=== PATIENT | female | born 1990 | race Caucasian/White ===

== ENCOUNTER 2018-07-12 05:10 | Inpatient (IN) | payer BC, SELFPAY ==
[2018-07-12] VITALS (22 sets, daily range): BP systolic 115–146; BP diastolic 60–86; PULSE 80–96; RESP 14–18; TEMP 36–37.1; O2SAT 95–100; BMI 33.8
[2018-07-12] MEDS: Lactated Ringers 1,000 ML 999 ML IV (05:25)
[2018-07-12 05:48] LABS: Absolute Lymphocyte Count 1.37 X10^3/ul (0.83-4.51); Basophil# 0.02 X10^3/uL; Basophil% 0.2 % (0-1); Eosinophil# 0.04 X10^3/uL; Eosinophils% 0.4 % (0-5); Hematocrit 40.8 % (37-47); Hemoglobin 14.2 g/dl (12.0-15.0); Lymphocyte # 1.37 X10^3/ul (4.0); Lymphocyte % 13.8 % (19-41); Mean Corp Hgb Conc 34.8 g/gl (32-36); Mean Corpuscular Hgb 32.9 pg (27.0-32.0); Mean Corpuscular Volume 94.4 fL (81-99); Mean Platelet Vol. 11.6 fl (6.2-12.0); Monocyte# 0.44 X10^3/uL; Monocyte% 4.4 % (0-10); Neutrophil # 8.01 X10^3/uL (2.7-7.7); Neutrophil % 80.8 % (47-70); Platelet Count 167 K/mm3 (150-450); RBC Distribution Width CV 12.9 % (11.6-14.6); RBC Distribution Width SD 43.9 fl (35.1-43.9); Red Blood Count 4.32 M/mm3 (4.2-5.4); White Blood Count 9.9 K/mm3 (4.4-11.0)
[2018-07-12 05:49] LABS: POSITIVE COUNT NO; POSITIVE DIFFERENTIAL NO; POSITIVE MORPHOLOGY NO
[2018-07-12] MEDS: Lactated Ringers 1,000 ML 150 ML IV (06:06)
[2018-07-12] MEDS: Sodium Citrate/Citric Acid 30 ML UDC PO (06:36)
[2018-07-12] MEDS: Cefazolin 2 GM in 0.9% Normal Saline 100 ML IV (07:06)
[2018-07-12] MEDS: Oxytocin 30 units/NS 500 ml 30 UNITS/500 ML IV.SOLN 167 UNITS IV (07:20)
[2018-07-12] MEDS: Lactated Ringers 1,000 ML 100 ML IV ×2 (08:10→18:28)
[2018-07-12] MEDS: Ketorolac 30 MG/ML Syringe IV ×2 (12:55→19:06)
[2018-07-12] MEDS: 0.9% Saline Lock 10 ML Syringe IV ×2 (12:55→19:07)
[2018-07-12] MEDS: Senna/Docusate Sodium 1 Tablet PO (15:28)
--- NOTE | 2018-07-12 20:57 | OP.PCM_ITS ---
Delivery Classification: Scheduled Final KENA: 07/15/18 Gestational age: 39 Weeks and 4 Days Indications for : Repeat Elective Description of Procedure: The patient was taken to the operating room. She was prepped and draped in the dorsal supine position with a leftward tilt. A Pfannenstiel skin incision was made approximately 2 cm above the symphysis pubis and carried through to underlying layer fascia with the scalpel. The fascia was incised incised in the midline and extended laterally with the Molina scissors. The fascia was dissected off the rectus muscles with blunt and sharp dissection. The rectus muscles were in the midline and the peritoneum was entered bluntly. The peritoneal incision was stretched and the bladder blade was placed. The uterine incision was made in a low transverse fashion with the scalpel and extended superiorly and inferiorly with blunt dissection. The amniotic membranes were ruptured bluntly and clear amniotic fluid returned. The 's head was brought to the incision in the flexed position and delivered without difficulty. The remainder of the infant was delivered with gentle traction and fundal pressure in the standard fashion. The mouth and nares were bulb suctioned. The cord was clamped and cut as the infant was stimulated. Cord clamping was delayed. The was handed off to the waiting nursing staff. The placenta was delivered with fundal massage and gentle traction in the standard fashion. The uterus was exteriorized and cleared of all clots and debris. The cervix was dilated with a ring forcep. The uterine incision was closed with #1 Vicryl in a running locked fashion. A second layer of the same suture was used in an imbricating fashion. The incision was examined and was found to be hemostatic. The uterus was placed back into the peritoneal cavity and hemostasis was again confirmed. The rectus muscles were examined and any bleeding was Bovie cauterized. The parietal peritoneum and rectus muscles were closed en bloc with an 0 Vicryl running suture. The surgical teams outer gloves were then changed. The rectus fascia was examined and any bleeding was Bovie cauterized and the rectus fascia was closed with #1 PDS suture in a running standard fashion. The subcutaneous tissue was examining and any bleeding was Bovie cauterized. The subcutaneous tissue was reapproximated with 3-0 Vicryl suture. The skin was closed in a subcuticular fashion by the NETWORK SECURITY ANALYST with me present in the labor and delivery suite. I performed the remainder of the procedure with assistance. All sponge, lap, and needle counts were correct. The patient was taken to her room for recovery in a stable condition. Amniotic Membrane Rupture Type: Artificial Amniotic Fluid Description: Clear Placenta Disposition: [facility] Drain: Doran to straight drain Cord Entanglement: None Cord Vessel Description: 3 Vessels Esitmated Blood Loss (ml): 800 Gender: Male (1 minute): 9 (5 minute): 9 Delayed cord clamping: Yes Pre-op Antibiotic Given: Ancef 2 grams IV x1 Complications: None - Admit VTE Documentation VTE Present on Admission: No VTE Mechan Device Prophylaxis: SCD's VTE Pharm Prophylaxis ordered?: Yes
[2018-07-13] VITALS (7 sets, daily range): BP systolic 116–131; BP diastolic 69–81; PULSE 71–89; RESP 14–16; TEMP 36.3–37.1; O2SAT 98–99
[2018-07-13] MEDS: Ketorolac 30 MG/ML Syringe IV ×4 (00:35→18:27)
[2018-07-13] MEDS: Senna/Docusate Sodium 1 Tablet PO ×2 (00:35→10:08)
[2018-07-13 05:32] LABS: Hematocrit 34.6 % (37-47); Hemoglobin 11.8 g/dl (12.0-15.0); Mean Corp Hgb Conc 34.1 g/gl (32-36); Mean Corpuscular Volume 96.6 fL (81-99); Mean Platelet Vol. 10.9 fl (6.2-12.0); Platelet Count 119 K/mm3 (150-450); RBC Distribution Width CV 13.1 % (11.6-14.6); RBC Distribution Width SD 43.8 fl (35.1-43.9); Red Blood Count 3.58 M/mm3 (4.2-5.4); White Blood Count 11.2 K/mm3 (4.4-11.0)
[2018-07-13 05:33] LABS: Scan Indicated on CBC? Y/N NO
[2018-07-13] MEDS: Enoxaparin 40 MG/0.4 ML Syringe SC (05:55)
[2018-07-13] MEDS: 0.9% Saline Lock 10 ML Syringe IV ×3 (05:55→18:27)
--- NOTE | 2018-07-13 10:10 | PCM.PN.OB ---
Subjective: pain well controlled, average lochia, no N/V. Kallie. regular diet - Physical Exam General: Alert, Cooperative, No apparent distress Abdomen: Soft, Distended - mildly, softly, Tender - appropriately Extremities: Edema - 1+ Skin: Incision - bandage clean,d ry and intact Vital Signs Temp Pulse Resp BP Pulse Ox 98.1 F 75 16 123/75 H 98 07/13/18 03:50 07/13/18 06:20 07/13/18 06:20 07/13/18 03:50 07/13/18 06:20 Oxygen Delivery Method Room Air Weight: 98 kg Body Mass Index (BMI) 33.8 Intake and Output for Last 24 Hours 07/11/18 07/12/18 07/13/18 23:59 23:59 23:59 Intake Total 1312 / 1312 954 / 954 Output Total 2775 / 2775 2200 / 2200 Balance -1463 / -1463 -1246 / -1246 Laboratory Tests Past 24 Hrs 07/13/18 05:25 WBC 11.2 H RBC 3.58 L Hgb 11.8 L Hct 34.6 L MCV 96.6 MCH 33.0 H MCHC 34.1 RDW 13.1 RDW Differential 43.8 Plt Count 119 L MPV 10.9 Medical Necessity - Tobacco Use Smoking Status: Never smoker Assessment/Plan All Active Problems Post term (Acute) Gestational hypertension (Acute) POD#1 s/p repeat c/s doing well, repeat care and doing well
--- NOTE | 2018-07-13 12:17 | NURSING ---
0845 Doran discontinued, 800ml clear lt yellow urine noted. Tolerated well. Ambulates to the bathroom, instructed in sander care, displays understanding. Pads changed for small/mod rubra lochia. Uses warm towelettes for sponge bath, up to sink to brush teeth, etc. yonis well. Returns to bed to feed baby. States she feels good,
--- NOTE | 2018-07-13 12:20 | NURSING ---
1110 Up to the bathroom to void. states she missed the speci hat but feels as though her bladder is empty and was able to void mod amount.
[2018-07-14] MEDS: 0.9% Saline Lock 10 ML Syringe IV ×2 (00:05→06:14)
[2018-07-14] MEDS: Ketorolac 30 MG/ML Syringe IV ×2 (00:05→06:13)
[2018-07-14 02:00] VITALS: BP 113/63; PULSE 89; RESP 16; TEMP 36.7
[2018-07-14] MEDS: Enoxaparin 40 MG/0.4 ML Syringe SC (06:14)
[2018-07-14 08:50] VITALS: BP 115/52; PULSE 83; RESP 16; TEMP 36.4; O2SAT 97
[2018-07-14] MEDS: Docusate Sodium 100 MG Capsule PO (09:00)
--- NOTE | 2018-07-14 10:38 | PCM.PN.OB ---
Subjective: pain well controlled, average lochia, + BM - Physical Exam General: Alert, Cooperative, No apparent distress Abdomen: Soft, Non-Distended, Tender - appropriately Skin: Incision - bandage clean, dry and intact Vital Signs Temp Pulse Resp BP Pulse Ox 97.5 F L 83 16 115/52 L 97 07/14/18 08:50 07/14/18 08:50 07/14/18 08:50 07/14/18 08:50 07/14/18 08:50 Oxygen Delivery Method Room Air Weight: 98 kg Body Mass Index (BMI) 33.8 Intake and Output for Last 24 Hours 07/12/18 07/13/18 07/14/18 23:59 23:59 23:59 Intake Total 1312 / 1312 954 / 954 Output Total 2775 / 2775 2200 / 2200 Balance -1463 / -1463 -1246 / -1246 Medical Necessity - Tobacco Use Smoking Status: Never smoker Assessment/Plan All Active Problems Post term (Acute) Gestational hypertension (Acute) POD#2 Doing well. Ready for discharge. Infant is breast-feeding and doing well. Reviewed routine discharge instructions. She is to follow-up in the office in 1-2 and 6 weeks or as needed.
--- NOTE | 2018-07-14 10:46 | DCINST_ITS ---
Discharge Diet: No Restrictions Discharge Activity: Return to Normal Activity, May Not Drive - for 2 weeks, May not drive while taking narcotic pain medications., May Shower, May Take a Tub Bath - in 7 days. May resume sexual activity in: 4-6 weeks Lifting Restrictions: 20 pounds Additional Activity Instructions:: Nothing in the vagina for 4-6 weeks. You may return to work/school in 6 weeks. Call your doctor if your incision/area has: Continuous Slow Oozing, Sudden Increased Bleeding, Increased Pain/ Swelling, Increased Redness, Foul Smelling Discharge Call your doctor if you observe: Fever of 101 or Higher, Using more than one pad per hour - for 2 hours Suture Line Care: Avoid Pulling/Pushing, Avoid Pinching/Bending Cleanse incision/area with: Keep Dressing Clean & Dry Additional Instructions: If you experience any of the following, contact your healthcare provider. * Bleeding that soaks a pad every hour for 2 hours * Fever 100.4 or higher * Unrelieved incision or abdominal pain * Swelling, redness, discharge or bleeding from your incision or episiotomy site * Your incision begins to separate * Problems urinating (including inability to urinate or burning while urinating). * Visual changes * Severe headache * Flu-like symptoms * Pain or redness in one of both of your breasts * Pain, warmth, tenderness or swelling in your legs, especially the calf area * Frequent nausea and vomiting * Symptoms of depression or anxiety If you experience any of the following, call 911 or go to the nearest Emergency Room. * Chest pain * Problems breathing * Seizure activity * Partial or complete paralysis of a body part, slurred speech, weakness or drooping of the face, or a sudden inability to walk or hold your balance Allergies/Adverse Reactions: Allergies No Known Allergies Allergy (Verified 07/12/18 05:34) Medications to take at Discharge Vits [Prenatabs FA ] 1 tablet PO DAILY 01/04/17 Naproxen 375 mg PO TID PRN #60 tablet. 07/14/18 Oxycodone HCl/Acetaminophen [Percocet 5-325] 1 - 2 tablet PO Q8 PRN 7 Days #20 tablet 07/14/18 The following prescriptions were given: Oxycodone HCl/Acetaminophen [Percocet 5-325] 1 - 2 tablet PO Q8 PRN 7 Days #20 tablet PRN Reason: Moderate-Severe pain Naproxen 375 mg PO TID PRN #60 tablet.dr SÁNCHEZ Reason: Pain Follow-Up: Call to make an appointment with your doctor for an incision check in 1-2 weeks. You will also need a 6 week post- follow up appointment. Test results from this visit will be discussed in further detail at your follow- up appointment, if applicable. Please Follow Up With: Oma Braun MD - Call to make an appointment for an incision check in 1-2 [phone] When: You will need a post check in 6 weeks. Primary Care Physician: Care Physician,No Primary [Primary Care Provider] -
--- NOTE | 2018-07-14 10:46 | PCM.DC.SUM ---
Discharge Date and Diagnosis Date of Admission: 07/12/18 Date of Discharge: 07/14/18 Hospital Course and Treatment Operations: - - Repeat low transverse section Via Pfannenstiel skin incision on 07/12/2018 Summary of Care Provided: The patient is a 28 year old 2 para 1 female who was admitted on 1 for repeat section. This was performed without difficulty. She had a low transverse section Via Pfannenstiel skin incision that was closed in 2 layers with #1 Vicryl suture. Her postoperative course was unremarkable. By postoperative day #2 she was ambulating, urinating, and tolerating regular diet without difficulty. She was discharged home with routine instructions and prescriptions and to follow-up in our office in 1-2 and 6 weeks or as needed. [] - Physical Exam Vital Signs Temp Pulse Resp BP Pulse Ox 97.5 F L 83 16 115/52 L 97 07/14/18 08:50 07/14/18 08:50 07/14/18 08:50 07/14/18 08:50 07/14/18 08:50 Oxygen Delivery Method Room Air Weight: 98 kg Body Mass Index (BMI) 33.8 Intake and Output for Last 24 Hours 07/12/18 07/13/18 07/14/18 23:59 23:59 23:59 Intake Total 1312 / 1312 954 / 954 Output Total 2775 / 2775 2200 / 2200 Balance -1463 / -1463 -1246 / -1246 Discharge Diet: No Restrictions Discharge Activity: Return to Normal Activity, May Not Drive - for 2 weeks, May not drive while taking narcotic pain medications., May Shower, May Take a Tub Bath - in 7 days. May resume sexual activity in: 4-6 weeks Additional Activity Instructions:: Nothing in the vagina for 4-6 weeks. You may return to work/school in 6 weeks. Call your doctor if your incision/area has: Continuous Slow Oozing, Sudden Increased Bleeding, Increased Pain/ Swelling, Increased Redness, Foul Smelling Discharge Call your doctor if you observe: Fever of 101 or Higher, Using more than one pad per hour - for 2 hours Suture Line Care: Avoid Pulling/Pushing, Avoid Pinching/Bending Cleanse incision/area with: Keep Dressing Clean & Dry Home Medications: Medications to take at Discharge Vits [Prenatabs FA ] 1 tablet PO DAILY 01/04/17 Naproxen 375 mg PO TID PRN #60 tablet. 07/14/18 Oxycodone HCl/Acetaminophen [Percocet 5-325] 1 - 2 tablet PO Q8 PRN 7 Days #20 tablet 07/14/18 Following Prescrptions Were Given to Patient: Oxycodone HCl/Acetaminophen [Percocet 5-325] 1 - 2 tablet PO Q8 PRN 7 Days #20 tablet PRN Reason: Moderate-Severe pain Naproxen 375 mg PO TID PRN #60 tablet.dr SÁNCHEZ Reason: Pain Primary Care Physician: Care Physician,No Primary [Primary Care Provider] - Please Follow Up With: Oma Braun MD - Call to make an appointment for an incision check in 1-2 [phone] When: You will need a post check in 6 weeks. Medical Necessity - Tobacco Use Smoking Status: Never smoker Meaningful Use Info Meaningful Use Diagnoses (Choose all that apply): None applicable
[2018-07-14 12:20] VITALS: BP 121/74; PULSE 77; RESP 18; TEMP 36.5; O2SAT 96
== END 2018-07-14 12:45 | disposition home or self-care (01) | DRG 788 ==
PROVIDERS: Admitting Provider Obstetrics & Gynecology; Referring Provider Obstetrics & Gynecology; Visit Provider Obstetrics & Gynecology
PROC: 10D00Z1 Extraction of Products of Conception, Low, Open Approach (ICD-10-PCS; CPT 59514; principal; 2018-07-12 06:45)
DX: O34.211 Maternal care for low transverse scar from previous cesarean delivery (principal); Z3A.39 39 weeks gestation of pregnancy; Z37.0 Single live birth
CPT/HCPCS: 85025; 85027; 86850; 86900; 99218; J7120; A4216; G0378

== ENCOUNTER → 2020-06-23 17:21 | Outpatient (CLI) | payer OTHER, SELFPAY ==
[2018-07-12 05:41] VITALS: BMI 33.8
== END ==
PROVIDERS: Referring Provider Obstetrics & Gynecology; Visit Provider Obstetrics & Gynecology
DX: U07.1 COVID-19 (principal)
CPT/HCPCS: 87635; C9803; U0003

== ENCOUNTER 2020-07-05 09:30 | Inpatient (IN) | payer OTHER, SELFPAY ==
[2018-07-12 05:41] VITALS: BMI 33.8
--- NOTE | 2020-06-23 12:14 | PCM.HP.BLA ---
History and Physical Date of Admission: 06/28/20 HPI: The patient is a 30 year old female presenting for pre-operative visit. She is scheduled for?, for?repeat on?06/28/2020. ??Procedure discussed along with risks, benefits and complications. ?Other alternatives discussed for management. Consent form signed??Yes.? PAST MEDICAL HISTORY PAST MEDICAL HISTORY Diagnosis Date ? abnormal pap 2012 ? LGSIL and + HPV ? Abnormal Pap smear of cervix ? ? History of pre-eclampsia in prior , currently ? ? ? PAST SURGICAL HISTORY PAST SURGICAL HISTORY Procedure Laterality Date ? CLASS ? 01/05/2017 ? DELIVERY ONLY ? 07/12/2018 ? RC/S low transverse ? VAGINOSCOPY ? CURRENT MEDICATIONS Current Outpatient Medications Medication Sig Dispense Refill ? Mcwgiaya-Oy-Otm-Fe-FA ( VITAMIN) tab Take 1 tablet by mouth. ? ? ? No current facility-administered medications for this visit. ? ALLERGIES:?Seasonal Allergies ? PERSONAL HISTORY:? SOCIAL HISTORY Social History ? Tobacco Use ? Smoking status: Never Smoker ? Smokeless tobacco: Never Used Substance Use Topics ? Alcohol use: Not Currently ? ? Comment: occasional, not while ? Drug use: No ? FAMILY HISTORY:? FAMILY HISTORY FAMILY HISTORY Problem Relation Age of Onset ? Hypertension Mother ? ? No Known Problems Father ? ? No Known Problems Brother ? ? No Known Problems Maternal Grandmother ? ? Cancer Maternal Grandfather ? ? No Known Problems Paternal Grandmother ? ? Heart Paternal Grandfather ? ? No Known Problems Son ? ? No Known Problems Son ? ? REVIEW OF SYMPTOMS: GENERAL: denies fevers or chills ENDOCRINOLOGY: has not been on steroids Cardiology : denies palpitations or chest pain Respiratory: denies SOB or cough Hematology: denies history of prolonged bleeding or easy bruising or VTE Allergy: Denies history of personal or family history of allergy to anesthesia ? ? PHYSICAL EXAMINATION: ? VITALS:?Weight 219 lb (99.3 kg), last menstrual period 10/01/2019, currently . ? GENERAL:??The patient is well nourished, well hydrated in no acute distress. ?, The patient is oriented to time, place, and person. NECK:?Supple. No lynphadenopathy, normal thyroid, no thyromegaly. LUNGS:?Clear to auscultation bilaterally. no wheezes, rhonchi or rales HEART:?Regular rate and rhythm, Normal heart sounds and No murmurs or gallops GENITALIA:?Normal external genitalia, Urethral meatus normal, Bladder nontender, normal vagina and normal vaginal tone, normal cervix, normal uterus, size and consistency, normal adnexa without masses or tenderness and perineum WNL ? IMPRESSION:? w/?Estimated Date of Delivery: 07/03/20 ? PLAN:???repeat c/s on 06/28/2020 kick counts f/u in 1 week or prn ? I have reviewed and updated past medical and surgical history, medications and allergies? This H&P was completed in my office on 06/23/2020.
[2020-07-05] VITALS (18 sets, daily range): BP systolic 101–138; BP diastolic 45–83; PULSE 69–97; RESP 14–20; TEMP 35.9–37.1; O2SAT 97–100; BMI 34.9
[2020-07-05] MEDS: Lactated Ringers 1,000 ML 999 ML IV (09:50)
[2020-07-05] MEDS: Acetaminophen 500 MG Tablet 1000 MG PO ×3 (10:18→22:49)
[2020-07-05 10:19] LABS: Absolute Lymphocyte Count 1.05 X10^3/uL (0.83-4.51); Absolute Neutrophil Count 9.8 X10^3/uL (2.0-7.7); Basophil# 0.03 X10^3/uL; Basophil% 0.3 % (0-1); Eosinophil# 0.02 X10^3/uL; Eosinophils% 0.2 % (0-5); Hematocrit 41.2 % (37-47); Hemoglobin 14.3 g/dL (12.0-15.0); Lymphocyte # 1.05 X10^3/ul (4.0); Lymphocyte % 9.2 % (19-41); Mean Corp Hgb Conc 34.7 g/dL (32-36); Mean Corpuscular Hgb 32.4 pg (27.0-32.0); Mean Corpuscular Volume 93.2 fL (81-99); Mean Platelet Vol. 10.4 fl (6.2-12.0); Monocyte# 0.39 X10^3/uL; Monocyte% 3.4 % (0-10); NRBC Flagged by Analyzer 0 % (0-5); Neutrophil # 9.84 X10^3/uL (2.7-7.7); Neutrophil % 86.2 % (47-70); Platelet Count 195 K/mm3 (150-450); RBC Distribution Width CV 12.8 % (11.6-14.6); RBC Distribution Width SD 43.9 fl (35.1-43.9); Red Blood Count 4.42 M/mm3 (4.2-5.4); White Blood Count 11.4 K/mm3 (4.4-11.0)
[2020-07-05] MEDS: Lactated Ringers 1,000 ML 150 ML IV (10:54)
[2020-07-05] MEDS: Sodium Citrate/Citric Acid 30 ML UDC PO (11:53)
[2020-07-05] MEDS: Cefazolin 2 GM in 0.9% Normal Saline 100 ML IV (12:16)
--- NOTE | 2020-07-05 12:59 | OP.PCM_ITS ---
Delivery Classification: Scheduled Final KENA: 07/03/20 Final KENA Source: US <20 weeks Gestational age: 40 Weeks and 2 Days environmental services manager: Kelley Dao Type of Anesthesia:: Spinal Special Medications: none Implants Used: none Date of Procedure: 07/05/20 Pre-Operative Diagnosis: 40 week , previous c/s x 2 Post-Operative Diagnosis: same Indications for : Repeat Elective Description of Procedure: The patient was taken to the operating room. She was prepped and draped in the dorsal supine position with a leftward tilt. A Pfannenstiel skin incision was made approximately 2 cm above the symphysis pubis and carried through to underlying layer fascia with the scalpel. The fascia was incised incised in the midline and extended laterally with the Molina scissors. The fascia was dissected off the rectus muscles with blunt and sharp dissection. The rectus muscles were in the midline and the peritoneum was entered bluntly. The peritoneal incision was stretched and the bladder blade was placed. The uterine incision was made in a low transverse fashion with the scalpel and extended superiorly and inferiorly with blunt dissection. The amniotic membranes were ruptured bluntly and clear amniotic fluid returned. The infant's head was brought to the incision in the flexed position and delivered without difficulty. The remainder of the infant was delivered with gentle traction and fundal pressure in the standard fashion. The mouth and nares were bulb suctioned. The cord was clamped and cut as the was stimulated. Cord clamping was delayed. The infant was handed off to the waiting nursing staff. The placenta was delivered with fundal massage and gentle traction in the standard fashion. The uterus was exteriorized and cleared of all clots and debris. The cervix was dilated with a ring forcep. The uterine incision was closed with #1 Vicryl in a running locked fashion. A second layer of the same suture was used in an imbricating fashion. The incision was examined and was found to be hemostatic. The uterus was placed back into the peritoneal cavity and hemostasis was again confirmed. The rectus muscles were examined and any bleeding was Bovie caut erized. The parietal peritoneum and rectus muscles were closed en bloc with an 0 Vicryl running suture. The surgical teams outer gloves were then changed. The rectus fascia was examined and any bleeding was Bovie cauterized and the rectus fascia was closed with #1 PDS suture in a running standard fashion. The subcutaneous tissue was examining and any bleeding was Bovie cauterized. The subcutaneous tissue was reapproximated with 3-0 Vicryl suture. The skin was closed in a subcuticular fashion by the HAND ENDBAND CUTTER with me present in the labor and delivery suite. I performed the remainder of the procedure with assistance. All sponge, lap, and needle counts were correct. The patient was taken to her room for recovery in a stable condition. Start time:1223 pm Stop time:1300 delivery time:1226 pm Amniotic Membrane Rupture Type: Artificial Amniotic Fluid Description: Clear Placenta Disposition: [facility] Specimen(s) sent to pathology: none Drain: Doran to straight drain Fluids Replaced: 1200 cc Cord Entanglement: Around neck x 1, loose Nuchal Cord Compression: Without compression Cord Vessel Description: 3 Vessels Esitmated Blood Loss (ml): 600 Infant Gender: Male - Marrik, 9lb 11 oz Antibiotic Given: Ancef 2 grams IV x1 Complications: None - Admit VTE Documentation VTE Present on Admission: No VTE Mechan Device Prophylaxis: SCD's VTE Pharm Prophylaxis ordered?: Yes
[2020-07-05] MEDS: Oxytocin 30 units/NS 500 ml 30 UNITS/500 ML IV.SOLN 167 UNITS IV (13:10)
[2020-07-05] MEDS: Lactated Ringers 1,000 ML 100 ML IV (16:38)
[2020-07-05] MEDS: DiphenhydrAMINE 50 MG/ML Syringe 25 MG IV (17:21)
[2020-07-05] MEDS: Ketorolac 30 MG/ML Syringe IV (18:28)
[2020-07-06 00:33] VITALS: PULSE 79; RESP 18; O2SAT 96
[2020-07-06] MEDS: Enoxaparin 40 MG/0.4 ML Syringe SC ×2 (00:35→22:15)
[2020-07-06] MEDS: 0.9% Saline Lock 10 ML Syringe IV ×3 (00:35→11:32)
[2020-07-06] MEDS: Ketorolac 30 MG/ML Syringe IV ×3 (00:35→11:34)
--- NOTE | 2020-07-06 04:30 | NURSING ---
Patient has been able to void only about 30-50cc at a time. Patient states she feels like she has to void and then only can urinate minimal amounts. This RN decided to bladder scan patient. When RN brought bladder scanner into the room, patient had been able to void 200 at [id number]. Decided to bladder scan anyway for a residual volume of 225. Patient stated she felt like she emptied her bladder with last void.
[2020-07-06] MEDS: Acetaminophen 500 MG Tablet 1000 MG PO ×4 (04:35→23:44)
[2020-07-06 04:37] VITALS: BP 125/71; PULSE 80; RESP 16; TEMP 36.3
[2020-07-06 05:02] LABS: Hematocrit 35.6 % (37-47); Hemoglobin 11.9 g/dL (12.0-15.0); Mean Corp Hgb Conc 33.4 g/dL (32-36); Mean Corpuscular Hgb 31.6 pg (27.0-32.0); Mean Corpuscular Volume 94.7 fL (81-99); Mean Platelet Vol. 10.3 fl (6.2-12.0); Platelet Count 162 K/mm3 (150-450); RBC Distribution Width CV 13.1 % (11.6-14.6); RBC Distribution Width SD 45.2 fl (35.1-43.9); Red Blood Count 3.76 M/mm3 (4.2-5.4); White Blood Count 13.4 K/mm3 (4.4-11.0)
[2020-07-06 08:00] VITALS: BP 113/62; PULSE 77; RESP 20; TEMP 36.4
--- NOTE | 2020-07-06 08:35 | PCM.PN.OB ---
Subjective: pain well controlled, average lochia, ambulating. No nausea - Physical Exam Vitals/I&O's: Vital Signs Temp Pulse Resp BP Pulse Ox 97.4 F L 80 16 125/71 H 96 07/06/20 04:37 07/06/20 04:37 07/06/20 04:37 07/06/20 04:37 07/06/20 00:33 Oxygen Delivery Method Room Air Weight: 101.2 kg Body Mass Index (BMI) 34.9 Intake and Output for Last 24 Hours 07/04/20 07/05/20 07/06/20 23:59 23:59 23:59 Intake Total 2987.33 / 2987.33 Output Total 2200 / 2200 450 / 450 Balance 787.33 / 787.33 -450 / -450 General: Alert, Cooperative, No apparent distress Abdomen: Soft, Distended - softly, moderately Extremities: Edema - 1+ Laboratory Results 07/05/20 10:00: WBC 11.4 H, RBC 4.42, Hgb 14.3, Hct 41.2, MCV 93.2, MCH 32.4 H, MCHC 34.7, RDW Std Deviation 43.9, RDW Coeff of Larissa 12.8, Plt Count 195, MPV 10.4, Immature Gran % (Auto) 0.700, Neut % (Auto) 86.2 H, Lymph % (Auto) 9.2 L, Kern % (Auto) 3.4, Eos % (Auto) 0.2, Baso % (Auto) 0.3, Absolute Neuts (auto) 9.8 H, Absolute Lymphs (auto) 1.05, Nucleated RBC % 0 07/05/20 10:00: Blood Type A POSITIVE, Antibody Screen NEGATIVE 07/06/20 04:50: WBC 13.4 H, RBC 3.76 L, Hgb 11.9 L, Hct 35.6 L, MCV 94.7, MCH 31.6, MCHC 33.4, RDW Std Deviation 45.2 H, RDW Coeff of Larissa 13.1, Plt Count 162, MPV 10.3 Current Medications Acetaminophen (Acetaminophen 500 Mg Tablet) 1,000 mg PO Q6H CONNIE Last Admin: 07/06/20 04:35 Dose: 1,000 mg Documented by: Bisacodyl (Bisacodyl 10 Mg Suppository) 10 mg RECTAL UD PRN PRN Reason: If no BM Diphenhydramine HCl (Diphenhydramine 25 Mg Capsule) 25 mg PO Q4H PRN PRN PRN Reason: ITCHING Enoxaparin Sodium (Enoxaparin 40 Mg/0.4 Ml Syringe) 40 mg SC DAILY@2200 CONNIE Last Admin: 07/06/20 00:35 Dose: 40 mg Documented by: Hydrocortisone (Hydrocortisone 2.5% Crm) 1 applic TOPICAL TID PRN PRN; Protocol PRN Reason: Discomfort Ketorolac Tromethamine (Ketorolac 30 Mg/Ml Syringe) 30 mg IV Q6H [facility] Stop: 07/06/20 12:01 Last Admin: 07/06/20 06:20 Dose: 30 mg Documented by: Methylergonovine Maleate (Methylergonovine 0.2 Mg/Ml Ampul) 0.2 mg IM X1 PRN PRN Reason: Uterine Atony Naproxen (Naproxen 250 Mg Tablet) 500 mg PO Q8H [facility] Ondansetron HCl (Ondansetron 4 Mg/2 Ml Vial) 4 mg IV Q4H PRN PRN PRN Reason: Nausea Oxycodone HCl (Oxycodone 5 Mg Tablet) 5 - 10 mg PO Q4H PRN PRN PRN Reason: Pain Score 4-10 Prochlorperazine Edisylate (Prochlorperazine 10 Mg/2 Ml Vial) 10 mg IV Q6H PRN PRN PRN Reason: NAUSEA Senna/Docusate Sodium (Senna/Docusate Sodium 1 Tablet) 0 tablet PO DAILY [facility] Simethicone (Simethicone 80 Mg Tablet) 80 mg PO PCHS PRN PRN Reason: Indigestion/stomach pain Sodium Chloride (0.9% Saline Lock 10 Ml Syringe) 5 - 15 ml IV UD PRN PRN Reason: SALINE FLUSH Last Admin: 07/06/20 06:19 Dose: 10 ml Documented by: Medical Necessity - Tobacco Use Smoking Status: Never smoker Assessment/Plan All Active Problems Post term (Acute) Gestational hypertension (Acute) POD#1 s/p repeat c/s and doing well ready for d/c tomorrow
[2020-07-06] MEDS: Senna/Docusate Sodium 1 Tablet PO (11:32)
[2020-07-06 14:00] VITALS: BP 107/71; PULSE 76; RESP 16; TEMP 36.1
[2020-07-06 20:21] VITALS: BP 122/70; PULSE 87; RESP 16; TEMP 36.3
[2020-07-06] MEDS: Naproxen 250 MG Tablet 500 MG PO (20:32)
--- NOTE | 2020-07-07 03:23 | NURSING ---
Report given to Yves Kong RN who will assume care of this patient at this time.
[2020-07-07 04:10] VITALS: BP 116/68; PULSE 75; RESP 16; TEMP 36.5
[2020-07-07] MEDS: Naproxen 250 MG Tablet 500 MG PO ×2 (04:11→12:06)
[2020-07-07] MEDS: Acetaminophen 500 MG Tablet 1000 MG PO ×2 (06:05→12:07)
--- NOTE | 2020-07-07 06:54 | PN.OBGYN_ITS ---
Subjective: pain well controlled, average lochia, +flatus, no BM. Kallie. regular diet - Physical Exam Vitals/I&O's: Vital Signs Temp Pulse Resp BP Pulse Ox 97.7 F L 75 16 116/68 96 07/07/20 04:10 07/07/20 04:10 07/07/20 04:10 07/07/20 04:10 07/06/20 00:33 Oxygen Delivery Method Room Air Weight: 101.2 kg Body Mass Index (BMI) 34.9 Intake and Output for Last 24 Hours 07/05/20 07/06/20 07/07/20 23:59 23:59 23:59 Intake Total 2987.33 / 2987.33 Output Total 2200 / 2200 1050 / 1050 Balance 787.33 / 787.33 -1050 / -1050 General: Alert, Cooperative, No apparent distress Abdomen: Soft, Distended - midly, softly, Tender - appropriately Extremities: Edema - 1+ Skin: Incision - bandage is clean, dry and intact Current Medications Acetaminophen (Acetaminophen 500 Mg Tablet) 1,000 mg PO Q6H [facility] Last Admin: 07/07/20 06:05 Dose: 1,000 mg Documented by: Bisacodyl (Bisacodyl 10 Mg Suppository) 10 mg RECTAL UD PRN PRN Reason: If no BM Diphenhydramine HCl (Diphenhydramine 25 Mg Capsule) 25 mg PO Q4H PRN PRN PRN Reason: ITCHING Enoxaparin Sodium (Enoxaparin 40 Mg/0.4 Ml Syringe) 40 mg SC DAILY@2200 [facility] Last Admin: 07/06/20 22:15 Dose: 40 mg Documented by: Hydrocortisone (Hydrocortisone 2.5% Crm) 1 applic TOPICAL TID PRN PRN; Protocol PRN Reason: Discomfort Methylergonovine Maleate (Methylergonovine 0.2 Mg/Ml Ampul) 0.2 mg IM X1 PRN PRN Reason: Uterine Atony Naproxen (Naproxen 250 Mg Tablet) 500 mg PO Q8H [facility] Last Admin: 07/07/20 04:11 Dose: 500 mg Documented by: Ondansetron HCl (Ondansetron 4 Mg/2 Ml Vial) 4 mg IV Q4H PRN PRN PRN Reason: Nausea Oxycodone HCl (Oxycodone 5 Mg Tablet) 5 - 10 mg PO Q4H PRN PRN PRN Reason: Pain Score 4-10 Prochlorperazine Edisylate (Prochlorperazine 10 Mg/2 Ml Vial) 10 mg IV Q6H PRN PRN PRN Reason: NAUSEA Senna/Docusate Sodium (Senna/Docusate Sodium 1 Tablet) 0 tablet PO DAILY [facility] Last Admin: 07/06/20 11:32 Dose: 1 tablet Documented by: Simethicone (Simethicone 80 Mg Tablet) 80 mg PO PCHS PRN PRN Reason: Indigestion/stomach pain Sodium Chloride (0.9% Saline Lock 10 Ml Syringe) 5 - 15 ml IV UD PRN PRN Reason: SALINE FLUSH Last Admin: 07/06/20 11:32 Dose: 10 ml Documented by: Medical Necessity - Tobacco Use Smoking Status: Never smoker Assessment/Plan All Active Problems Post term (Acute) Gestational hypertension (Acute) POD #2 routine care ready for d/c and doing well
--- NOTE | 2020-07-07 07:17 | PCM.DCCSEC ---
Discharge Diet: No Restrictions Discharge Activity: Return to Normal Activity, May Not Drive - for 2 weeks, May not drive while taking narcotic pain medications., May Shower, May Take a Tub Bath - in 7 days. May resume sexual activity in: 4-6 weeks Lifting Restrictions: 20 pounds Additional Activity Instructions:: Nothing in the vagina for 4-6 weeks. You may return to work/school in 6 weeks. Call your doctor if your incision/area has: Continuous Slow Oozing, Sudden Increased Bleeding, Increased Pain/ Swelling, Increased Redness, Foul Smelling Discharge Call your doctor if you observe: Fever of 101 or Higher, Using more than one pad per hour - for 2 hours Suture Line Care: Avoid Pulling/Pushing, Avoid Pinching/Bending Cleanse incision/area with: Keep Dressing Clean & Dry Additional Instructions: If you experience any of the following, contact your healthcare provider. Bleeding that soaks a pad every hour for 2 hours Fever 100.4 or higher Unrelieved incision or abdominal pain Swelling, redness, discharge or bleeding from your incision or episiotomy site Your incision begins to separate Problems urinating (including inability to urinate or burning while urinating). Visual changes Severe headache Flu-like symptoms Pain or redness in one of both of your breasts Pain, warmth, tenderness or swelling in your legs, especially the calf area Frequent nausea and vomiting Symptoms of depression or anxiety If you experience any of the following, call 911 or go to the nearest Emergency Room. Chest pain Problems breathing Seizure activity Partial or complete paralysis of a body part, slurred speech, weakness or drooping of the face, or a sudden inability to walk or hold your balance Allergies/Adverse Reactions: Allergies No Known Allergies Allergy (Verified 07/05/20 09:52) Medications to take at Discharge Vits [Prenatabs FA ] 1 tablet PO DAILY 01/04/17 Naproxen 375 mg PO Q8 PRN #40 tab 07/07/20 Oxycodone [Oxyir] 5 mg PO Q6H PRN PRN 7 Days #12 tab 07/07/20 The following prescriptions were given: Naproxen 375 mg PO Q8 PRN #40 tab PRN Reason: Pain/Inflammation Transmission Status: Pending to [facility] Oxycodone [Oxyir] 5 mg PO Q6H PRN PRN 7 Days #12 tab PRN Reason: severe pain Transmission Status: Sent to [facility] Follow-Up: Call to make an appointment with your doctor for an incision check in 1-2 weeks. You will also need a 6 week post- follow up appointment. Test results from this visit will be discussed in further detail at your follow-up appointment, if applicable. Please Follow Up With: Oma Braun MD - Call to make an appointment for an incision check in 1-2 [phone] When: You will need a post check in 6 weeks. Primary Care Physician: Care Physician,No Primary [Primary Care Provider] -
--- NOTE | 2020-07-07 07:17 | PCM.DC.SUM ---
Discharge Date and Diagnosis Date of Admission: 07/05/20 Date of Discharge: 07/07/20 Hospital Course and Treatment Operations: - - Repeat low transverse section Via Pfannenstiel skin incision on 07/05/2020 Procedures: None Summary of Care Provided: The patient is a 30 year old female admitted for repeat c/s. This was performed without difficulty on 07/05/2020. By POD#2 she was ambulating, urinating and tolerating regular diet without difficulty. She was discharged home with routine instructions and prescriptions. [] - Physical Exam Vitals/I&O's: Vital Signs Temp Pulse Resp BP Pulse Ox 97.7 F L 75 16 116/68 96 07/07/20 04:10 07/07/20 04:10 07/07/20 04:10 07/07/20 04:10 07/06/20 00:33 Oxygen Delivery Method Room Air Weight: 101.2 kg Body Mass Index (BMI) 34.9 Intake and Output for Last 24 Hours 07/05/20 07/06/20 07/07/20 23:59 23:59 23:59 Intake Total 2987.33 / 2987.33 Output Total 2200 / 2200 1050 / 1050 Balance 787.33 / 787.33 -1050 / -1050 Current Medications Acetaminophen (Acetaminophen 500 Mg Tablet) 1,000 mg PO Q6H [facility] Last Admin: 07/07/20 06:05 Dose: 1,000 mg Documented by: Bisacodyl (Bisacodyl 10 Mg Suppository) 10 mg RECTAL UD PRN PRN Reason: If no BM Diphenhydramine HCl (Diphenhydramine 25 Mg Capsule) 25 mg PO Q4H PRN PRN PRN Reason: ITCHING Enoxaparin Sodium (Enoxaparin 40 Mg/0.4 Ml Syringe) 40 mg SC DAILY@2200 [facility] Last Admin: 07/06/20 22:15 Dose: 40 mg Documented by: Hydrocortisone (Hydrocortisone 2.5% Crm) 1 applic TOPICAL TID PRN PRN; Protocol PRN Reason: Discomfort Methylergonovine Maleate (Methylergonovine 0.2 Mg/Ml Ampul) 0.2 mg IM X1 PRN PRN Reason: Uterine Atony Naproxen (Naproxen 250 Mg Tablet) 500 mg PO Q8H [facility] Last Admin: 07/07/20 04:11 Dose: 500 mg Documented by: Ondansetron HCl (Ondansetron 4 Mg/2 Ml Vial) 4 mg IV Q4H PRN PRN PRN Reason: Nausea Oxycodone HCl (Oxycodone 5 Mg Tablet) 5 - 10 mg PO Q4H PRN PRN PRN Reason: Pain Score 4-10 Prochlorperazine Edisylate (Prochlorperazine 10 Mg/2 Ml Vial) 10 mg IV Q6H PRN PRN PRN Reason: NAUSEA Senna/Docusate Sodium (Senna/Docusate Sodium 1 Tablet) 0 tablet PO DAILY [facility] Last Admin: 07/06/20 11:32 Dose: 1 tablet Documented by: Simethicone (Simethicone 80 Mg Tablet) 80 mg PO PCHS PRN PRN Reason: Indigestion/stomach pain Sodium Chloride (0.9% Saline Lock 10 Ml Syringe) 5 - 15 ml IV UD PRN PRN Reason: SALINE FLUSH Last Admin: 07/06/20 11:32 Dose: 10 ml Documented by: Discharge Diet: No Restrictions Discharge Activity: Return to Normal Activity, May Not Drive - for 2 weeks, May not drive while taking narcotic pain medications., May Shower, May Take a Tub Bath - in 7 days. May resume sexual activity in: 4-6 weeks Additional Activity Instructions:: Nothing in the vagina for 4-6 weeks. You may return to work/school in 6 weeks. Call your doctor if your incision/area has: Continuous Slow Oozing, Sudden Increased Bleeding, Increased Pain/ Swelling, Increased Redness, Foul Smelling Discharge Call your doctor if you observe: Fever of 101 or Higher, Using more than one pad per hour - for 2 hours Suture Line Care: Avoid Pulling/Pushing, Avoid Pinching/Bending Cleanse incision/area with: Keep Dressing Clean & Dry Home Medications: Medications to take at Discharge Vits [Prenatabs FA ] 1 tablet PO DAILY 01/04/17 Naproxen 375 mg PO Q8 PRN #40 tab 07/07/20 Oxycodone [Oxyir] 5 mg PO Q6H PRN PRN 7 Days #12 tab 07/07/20 Following Prescriptions Were Given to Patient: Naproxen 375 mg PO Q8 PRN #40 tab PRN Reason: Pain/Inflammation Transmission Status: Pending to [facility] Oxycodone [Oxyir] 5 mg PO Q6H PRN PRN 7 Days #12 tab PRN Reason: severe pain Transmission Status: Sent to [facility] Primary Care Physician: Care Physician,No Primary [Primary Care Provider] - Please Follow Up With: Oma Braun MD - Call to make an appointment for an incision check in 1-2 [phone] When: You will need a post check in 6 weeks. Medical Necessity - Tobacco Use Smoking Status: Never smoker Meaningful Use Info Meaningful Use Diagnoses (Choose all that apply): None applicable
[2020-07-07 08:30] VITALS: BP 109/70; PULSE 80; RESP 18; TEMP 36.6; O2SAT 98
[2020-07-07] MEDS: Senna/Docusate Sodium 1 Tablet PO (12:06)
== END 2020-07-07 12:25 | disposition home or self-care (01) | DRG 788 ==
PROVIDERS: Admitting Provider Obstetrics & Gynecology; Referring Provider Obstetrics & Gynecology; Visit Provider Obstetrics & Gynecology
PROC: 10D00Z1 Extraction of Products of Conception, Low, Open Approach (ICD-10-PCS; CPT 59514; principal; 2020-07-05 11:45)
DX: O34.211 Maternal care for low transverse scar from previous cesarean delivery (principal); O48.0 Post-term pregnancy; O13.4 Gestational [pregnancy-induced] hypertension without significant proteinuria, complicating childbirth; O69.81X0 Labor and delivery complicated by cord around neck, without compression, not applicable or unspecified; Z37.0 Single live birth; Z3A.40 40 weeks gestation of pregnancy; Z82.49 Family history of ischemic heart disease and other diseases of the circulatory system; Z87.59 Personal history of other complications of pregnancy, childbirth and the puerperium
CPT/HCPCS: 85025; 85027; 86850; 86900; 86901; 99218; J7120; A4216; G0378; J2405